=== PATIENT | male | born 1980 | race Caucasian/White ===

== ENCOUNTER 2017-12-28 20:52 | Emergency (ER) | payer OTHER ==
[2017-12-28 21:00] VITALS: RESP 16
[2017-12-28] MEDS ORDERED: Sodium Chloride 0.9% 1,000 ML IV ONE (21:14)
--- NOTE | 2017-12-28 21:15 | C.PDOC ---
History Of Present Illness Patient presents to the ER with a complaint of mid epigastric pain. Patient has been drinking all weekend and continues to drink; states he has a Hx of pancreatitis and notes the pain feels similar. Denies fever, chills, nausea, or vomiting. Time Seen by Provider: 12/28/17 21:14 Chief Complaint (Nursing): Abdominal Pain History Per: Patient History/Exam Limitations: no limitations Onset/Duration Of Symptoms: Hrs Current Symptoms Are (Timing): Still Present Severity: Moderate Pain Scale Rating Of: 4 Location Of Pain/Discomfort: Epigastric Radiation Of Pain To:: None Quality Of Discomfort: Unable To Describe Associated Symptoms: denies: Fever, Chills, Nausea, Vomiting Exacerbating Factors: None Alleviating Factors: None Recent travel outside of the [place]: No Past Medical History Reviewed: Historical Data, Nursing Documentation, Vital Signs Vital Signs: Last Vital Signs Temp 98.6 F 12/29/17 00:50 Pulse 72 12/29/17 00:50 Resp 16 12/29/17 00:50 BP 132/72 12/29/17 00:50 Pulse Ox 96 12/29/17 00:50 - Medical History PMH: Pancreatitis Family History: States: No Known Family Hx - Social History Hx Alcohol Use: Yes Hx Substance Use: No Review Of Systems Constitutional: Negative for: Fever, Chills Cardiovascular: Negative for: Chest Pain, Palpitations Respiratory: Negative for: Cough, Shortness of Breath Gastrointestinal: Positive for: Abdominal Pain. Negative for: Nausea, Vomiting Neurological: Negative for: Weakness, Numbness Physical Exam - Physical Exam Appears: Non-toxic Skin: Warm, Dry Head: Normacephalic Oral Mucosa: Moist Chest: Symmetrical, No Tenderness Cardiovascular: Rhythm Regular Respiratory: No Rales, No Rhonchi, No Wheezing Gastrointestinal/Abdominal: Soft, Tenderness (Mid epigastric), No Guarding, No Rebound Back: No CVA Tenderness Neurological/Psych: Oriented x3 ED Course And Treatment - Laboratory Results Result Diagrams: 12/28/17 21:19 12/28/17 21:19 O2 Sat by Pulse Oximetry: 99 (room air) Pulse Ox Interpretation: Normal Progress Note: Blood work and urinalysis ordered. Protonix, zofran, and IV fluids administered. Reevaluation Time: 02:48 Reassessment Condition: Improved Disposition Counseled Patient/Family Regarding: Studies Performed, Diagnosis, Need For Followup, Rx Given - Disposition Referrals: [facility] [Outside] [facility] [Outside] Disposition: HOME/ ROUTINE Disposition Time: 21:15 Condition: FAIR Prescriptions: Pantoprazole Sodium [Protonix] 40 mg PO DAILY #15 ect Instructions: Alcohol Abuse and Alcoholism (DC), Pancreatitis (DC) Forms: [employer] (Welsh) - Clinical Impression Clinical Impression: Abdominal pain, Alcohol abuse, Pancreatitis - Scribe Statement The provider has reviewed the documentation as recorded by the Scribaileen Mckinnon All medical record entries made by the Cassieibe were at my direction and personally dictated by me. I have reviewed the chart and agree that the record accurately reflects my personal performance of the history, physical exam, medical decision making, and the department course for this patient. I have also personally directed, reviewed, and agree with the discharge instructions and disposition.
[2017-12-28] MEDS ORDERED: Sodium Chloride 0.9% 1,000 ML ONE (21:16)
[2017-12-28 21:25] LABS: BASO # 0.1 K/uL (0.0-0.2); BASO % 0.9 % (0.0-2.0); EOS # 0.2 K/uL (0.0-0.7); EOS % 1.8 % (0.0-4.0); LYMPH # 1.6 K/uL (1.0-4.3); LYMPH % 17.2 % (20.0-40.0); MEAN CELL VOLUME 97.5 fL (80.0-94.0); MEAN CORPUSCULAR HGB CONC 33.8 g/dL (33.0-37.0); MONO # 1.6 K/uL (0.0-0.8); MONO % 17.2 % (0.0-10.0); NEUT % 62.9 % (50.0-75.0); NRBC % 0.1 % (0.0-2.0); RBC 4.24 Mil/uL (4.40-5.90); RED CELL DISTRIBUTION WIDTH 14.3 % (11.5-14.5); WHITE BLOOD COUNT 9.6 K/uL (4.8-10.8)
[2017-12-28 21:36] LABS: INR 1.2; PROTHROMBIN TIME 12.8 SECONDS (9.7-12.2)
[2017-12-28 21:39] LABS: ALB/GLOB RATIO 1.3 (1.0-2.1); ALT/SGPT 51 U/L (21-72); AST/SGOT 92 U/L (17-59); BLOOD UREA NITROGEN 14 mg/dL (9-20); CALCIUM 9.8 mg/dl (8.6-10.4); GFR NON-AFRICAN AMERICAN > 60; LIPASE 918 U/L (23-300)
[2017-12-28 23:10] LABS: URINE BACTERIA RARE (<OCC); URINE BILIRUBIN NEGATIVE (NEGATIVE); URINE CLARITY Clear (Clear); URINE COLOR Straw (YELLOW); URINE GLUCOSE (UA) NORMAL (Normal); URINE LEUKOCYTE ESTERASE NEG Leu/uL (Negative); URINE PROTEIN NEGATIVE (NEGATIVE); URINE UROBILINOGEN NORMAL mg/dL (0.2-1.0)
[2017-12-28 23:20] LABS: URINE BLOOD NEGATIVE (NEGATIVE)
[2017-12-29 00:51] VITALS: BP 132/72; PULSE 72; TEMP 98.6
[2017-12-29 02:50] VITALS: O2SAT 99
== END 2017-12-29 03:40 | disposition home or self-care (01) ==
LOC: C.ER 20:52
DX: K85.90 Acute pancreatitis without necrosis or infection, unspecified (principal); R10.9 Unspecified abdominal pain; F10.10 Alcohol abuse, uncomplicated; Y90.8 Blood alcohol level of 240 mg/100 ml or more
CPT/HCPCS: 80053; 80320; 81001; 82140; 83690; 85025; 85610; 85730; 96361; 96374; 96375; 99285; C9113; J2405; J7030

== ENCOUNTER 2018-06-03 16:03 | Emergency (ER) | payer MEDICAID, OTHER ==
[2018-06-03 16:11] VITALS: BMI 21.9
[2018-06-03 16:16] VITALS: O2SAT 98
--- NOTE | 2018-06-03 17:29 | C.PDOC ---
History Of Present Illness 38 y/o male brought in by ambulance for evaluation of head injury sustained just prior to arrival. Patient admits he had a few drinks this afternoon. States he fell down 2 stairs and hit his head against the wall. Denies LOC, he remembers all details of the event. Patient is now complaining of a headache. He is unsure of tetanus vaccine status. Additionally, patient is expressing interested in detox. Reports he drinks daily and usually takes several shots. No other complaints offered. Patient denies any SI or HI. - HPI Time Seen by Provider: 06/03/18 16:50 Chief Complaint (Nursing): Substance Abuse History Per: Patient History/Exam Limitations: no limitations Onset/Duration Of Symptoms: Mins Injury Occurred (Timing): Just Before Arrival Location Of Injury: Left: Head Additional History Per: EMS - Fall Fall:Prior To Injury: Tripped Past Medical History Reviewed: Historical Data, Nursing Documentation, Vital Signs Vital Signs: Last Vital Signs Temp 98.6 F 06/03/18 16:12 Pulse 111 H 06/03/18 16:12 Resp 20 06/03/18 16:12 BP 127/81 06/03/18 16:12 Pulse Ox 98 06/03/18 16:12 - Medical History PMH: Pancreatitis Other PMH: Alcoholism Surgical History: No Surg Hx Family History: States: No Known Family Hx - Social History Hx Tobacco Use: Yes Hx Alcohol Use: Yes (daily) Hx Substance Use: No Review Of Systems Constitutional: Negative for: Fever, Weakness Cardiovascular: Negative for: Chest Pain Respiratory: Negative for: Shortness of Breath Gastrointestinal: Negative for: Nausea, Vomiting, Abdominal Pain Musculoskeletal: Negative for: Neck Pain, Back Pain Skin: Positive for: Lesions (laceration to forehead) Neurological: Positive for: Headache. Negative for: Weakness, Numbness, Confusion, Altered Mental Status, Dizziness, Other (LOC/syncope) Psych: Positive for: Other (ETOH abuse). Negative for: Suicidal ideation (or HI) Physical Exam - Physical Exam Appears: Non-toxic, No Acute Distress, Other (Mild alcohol on breath) Skin: Normal Color, Warm Head: Normacephalic, Laceration (2.5 cm superficial laceration/abrasion to left forehead, vertical orientation) Eye(s): bilateral: Normal Inspection, PERRL, EOMI Nose: Normal, No Epistaxis, No Tenderness Neck: Normal ROM, No Midline Cervical Tenderness, No Paracervical Tenderness, Supple Chest: Symmetrical Cardiovascular: Rhythm Regular, No Murmur Respiratory: Normal Breath Sounds, No Accessory Muscle Use Gastrointestinal/Abdominal: Soft, No Tenderness, No Distention Extremity: Bilateral: Atraumatic, Normal Color And Temperature, Normal ROM Neurological/Psych: Oriented x3, Normal Cranial Nerves, Other (Clear speech, answering questions appropriately) Gait: Steady ED Course And Treatment O2 Sat by Pulse Oximetry: 98 (RA) Pulse Ox Interpretation: Normal - CT Scan/US CT head Other Rad Studies (CT/US): Read By Radiologist, Radiology Report Reviewed CT/US Interpretation: Accession No. : [id number]. Patient Name / ID : CELIO LOPEZ / [id number]. Exam Date : 06/03/2018 17:11:18 ( Approved ). Study Comment : Sex / Age : M / 38Y. Creator : Sabrina Ordoñez. Dictator : Verito Baker MD. Timber Spotter : Supervisor Press Room : Verito Baker MD. Approver2 : Report Date : 06/03/2018 17:17:41. My Comment : . This report is currently processing and HAS NOT BEEN OFFICIALLY SIGNED BY THE PHYSICIAN - ESTIMATED TIME OF APPROVAL IS 06/03/2018 17:33. Date of service: 06/03/2018. PROCEDURE: CT HEAD WITHOUT CONTRAST. HISTORY: HEAD INJURY, ALCOHOL INTOXICATION. COMPARISON: None available. TECHNIQUE: Axial computed tomography images were obtained through the head/brain without intravenous contrast. Radiation dose: Total exam DLP = 890.52 mGy-cm. This CT exam was performed using one or more of the following dose reduction techniques: Automat ed exposure control, adjustment of the mA and/or kV according to patient size, and/or use of iterative reconstruction technique. FINDINGS: HEMORRHAGE: No intracranial hemorrhage. BRAIN: No mass effect or edema. No atrophy or chronic microvascular ischemic changes. VENTRICLES: No hydrocephalus. CALVARIUM: Unremarkable. PARANASAL SINUSES: Mucosal thickening of the ethmoid air cells. MASTOID AIR CELLS: Unremarkable as visualized. No inflammatory changes. OTHER FINDINGS: None. IMPRESSION: No acute intracranial pathology identified. Progress Note: Patient given 600 mg motrin for the headache. CT head obtained, and is negative. Discussed with crisis team, there are no detox beds available at this time. Patient refuses tetanus vaccine at this time. Patient is alert, awake, with clear speech and steady gait. He is stable for discharge home. Provided with resources for outpatient psych/detox services. Disposition Counseled Patient/Family Regarding: Studies Performed, Diagnosis, Need For Followup, Rx Given - Disposition Referrals: [facility] [Outside] Disposition: HOME/ ROUTINE Disposition Time: 18:00 Condition: STABLE Additional Instructions: FOLLOW UP WITH YOUR DOCTOR/CLINIC IN 1-2 DAYS CALL TO TRY FOR ALCOHOL DETOX PRESCREENING RETURN TO ER IF YOU HAVE ANY CONCERNING SYMPTOMS Instructions: Closed Head Injury (DC), Alcohol Abuse and Alcoholism (DC) Forms: [employer] (Arabic) Print Language: SAMI - Clinical Impression Clinical Impression: Forehead abrasion, Closed head injury - Scribe Statement The provider has reviewed the documentation as recorded by the Adelfo Castaneda Provider Attestation: All medical record entries made by the Adelfo were at my direction and personally dictated by me. I have reviewed the chart and agree that the record accurately reflects my personal performance of the history, physical exam, medical decision making, and the department course for this patient. I have also personally directed, reviewed, and agree with the discharge instructions and disposition.
--- NOTE | 2018-06-03 17:32 | CT ---
Date of service: 06/03/2018 PROCEDURE: CT HEAD WITHOUT CONTRAST. HISTORY: HEAD INJURY, ALCOHOL INTOXICATION COMPARISON: None available. TECHNIQUE: Axial computed tomography images were obtained through the head/brain without intravenous contrast. Radiation dose: Total exam DLP = 890.52 mGy-cm. This CT exam was performed using one or more of the following dose reduction techniques: Automated exposure control, adjustment of the mA and/or kV according to patient size, and/or use of iterative reconstruction technique. FINDINGS: HEMORRHAGE: No intracranial hemorrhage. BRAIN: No mass effect or edema. No atrophy or chronic microvascular ischemic changes. VENTRICLES: No hydrocephalus. CALVARIUM: Unremarkable. PARANASAL SINUSES: Mucosal thickening of the ethmoid air cells. MASTOID AIR CELLS: Unremarkable as visualized. No inflammatory changes. OTHER FINDINGS: None. IMPRESSION: No acute intracranial pathology identified.
[2018-06-03 17:48] VITALS: BP 129/77; PULSE 96; RESP 17; TEMP 98.7
== END 2018-06-03 18:50 | disposition home or self-care (01) ==
LOC: C.ER 16:03
DX: S00.81XA Abrasion of other part of head, initial encounter (principal); W10.9XXA Fall (on) (from) unspecified stairs and steps, initial encounter